=== PATIENT | female | born 1975 | race African-American/Black ===

== ENCOUNTER 2019-02-12 18:27 | Emergency (ER) | payer OTHER ==
[~2019-02-12] VITALS: Ht 160 cm; Wt 55.8 kg
[2019-02-12 18:37] VITALS: BP 157/100
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
== END 2019-02-12 19:07 | disposition home or self-care (01) ==
LOC: ER 18:32
DX: M54.2 Cervicalgia (principal); M54.9 Dorsalgia, unspecified; Z98.890 Other specified postprocedural states; V49.49XA Driver injured in collision with other motor vehicles in traffic accident, initial encounter; Y93.89 Activity, other specified; Y92.488 Other paved roadways as the place of occurrence of the external cause; Y99.8 Other external cause status

== ENCOUNTER 2019-04-15 14:37 | Emergency (ER) | payer OTHER ==
[~2019-04-15] VITALS: Ht 160 cm; Wt 56.0 kg
--- NOTE | 2019-04-15 15:05 | NUR ---
PT CAME INTO THE ED C/O HIGH BLOOD PRESSURE FOR 3 DAYS. -[place], -[place]. PT AAOX4, RESPIRATIONS EVEN AND UNLABORED ON ROOM AIR W/ NAD NOTED. PT CONNECTED TO THE MONITOR
--- NOTE | 2019-04-15 15:20 | NUR ---
BLOOD DRAWN AND SENT TO LAB
[2019-04-15 15:39] LABS: EOSINOPHILS % (AUTO) 3.7 % (0.0-6.0); HEMATOCRIT 36 % (33-45); LYMPHOCYTES # (AUTO) 1.4 /CMM (0.8-4.8); MEAN CORPUSCULAR HGB CONC 33 g/dl (31.0-36.0); MEAN CORPUSCULAR VOLUME 93 fL (82-100); MONOCYTES # (AUTO) 0.3 /CMM (0.1-1.30); MONOCYTES % (AUTO) 6.2 % (2.0-12.0); NEUTROPHILS # (AUTO) 2.7 /CMM (1.8-8.9); NEUTROPHILS % (AUTO) 58.1 % (43.0-81.0); PLATELET COUNT (AUTO) 374 /CMM (150-450); RED BLOOD CELL COUNT(AUTO) 3.89 MIL/uL (4.0-5.2); WHITE BLOOD COUNT (AUTO) 4.7 K/uL (4.3-11.0)
[2019-04-15 15:47] LABS: CALCIUM, SERUM 9.2 mg/dL (8.5-10.1); CREATININE 0.8 mg/dL (0.6-1.3)
[2019-04-15 15:58] LABS: POTASSIUM 2.8 mmol/L (3.5-5.1)
[2019-04-15] MEDS ORDERED: POTASSIUM CHLORIDE 20 MEQ TAB.PRT.SR PO ONE ×2 (16:00→16:02)
--- NOTE | 2019-04-15 18:07 | NUR ---
Patient discharged to home in stable condition. Written and verbal after care instructions given. Patient verbalizes understanding of instruction.
[2019-04-15 18:08] VITALS: BP 145/87
== END 2019-04-15 18:09 | disposition home or self-care (01) ==
LOC: ER 14:41
DX: E87.6 Hypokalemia (principal); R42 Dizziness and giddiness; R03.0 Elevated blood-pressure reading, without diagnosis of hypertension; Z60.2 Problems related to living alone
CPT/HCPCS: 36415; 70450; 80048; 84484; 85025; 93005; 99284; J7030